=== PATIENT | female | born 1990 | race Caucasian/White ===

== ENCOUNTER → 2018-05-28 | Outpatient (REF) | payer OTHER ==
[~2018-05-28] MED LIST: IBUP-1114 PO; MAPA500T2 PO; PRENTAB9 PO
== END ==
LOC: M LAB REF 12:52
PROVIDERS: ATTEND Obstetrics & Gynecology
DX: Z34.83 Encounter for supervision of other normal pregnancy, third trimester (principal)

== ENCOUNTER 2018-06-30 01:45 | Inpatient (IN) | payer OTHER ==
[~2018-06-30] VITALS: Ht 172.7 cm; Wt 89.4 kg
[2018-06-30 02:06] VITALS: BP 139/79
[2018-06-30] MEDS ORDERED: LR 1,000 ML IV SCH (02:30)
[2018-06-30] MEDS ORDERED: LACTATED RINGER'S 1000 ML IV ONE (02:30)
[2018-06-30 02:54] LABS: HEMATOCRIT 40.3 % (36.0-47.0); HEMOGLOBIN 14.2 g/dl (12.0-15.5); MEAN CORPUSCULAR HEMOGLOBIN 30.7 pg (27.0-33.0); MEAN CORPUSCULAR HGB CONC 35.2 g/dl (32.0-36.5); PLATELET COUNT, AUTOMATED 149 10^3/uL (150-450); RED BLOOD COUNT 4.63 10^6/uL (4.00-5.40); WHITE BLOOD COUNT 14.8 10^3/uL (4.0-10.0)
[2018-06-30] MEDS ORDERED: OXYTOCIN 30 UNITS IN 0.9% NaCl 500ML IV BAG (J2590) As Ordered ONE (03:34)
[2018-06-30] MEDS ORDERED: OXYTOCIN DRIP 30 UNITS in APPROPRIATE DILUENT 1 EA IV SCH (03:51)
[2018-06-30] MEDS ORDERED: MEASLES,MUMPS,RUBELLA VACCINE INJ (MMR-II) (90707) SC SCH (04:00)
[2018-06-30] MEDS ORDERED: DOCUSATE SODIUM 100 MG CAP PO PRN (04:00)
[2018-06-30] MEDS ORDERED: ACETAMINOPHEN 500 MG TAB PO PRN (04:00)
[2018-06-30] MEDS ORDERED: IBUPROFEN 800 MG TAB PO PRN (04:00)
[2018-06-30] MEDS ORDERED: RHOGAM 300 MCG (1500 IU) INJ (J2790) IM SCH (04:00)
[2018-06-30] MEDS ORDERED: METHYLERGONOVINE MALEATE 0.2 MG TAB PO PRN (04:00)
[2018-06-30] MEDS ORDERED: DIBUCAINE 1% OINTMENT 30GM TOP PRN (04:00)
[2018-06-30 04:02] LABS: CORD GAS ABE A -2.9; CORD GAS ABE V -3.2; CORD GAS HCO3 A 22.6 MEQ/L; CORD GAS HCO3 V 20.7 MEQ/L; CORD GAS O2 SAT A 40.4 %; CORD GAS O2 SAT V 63.9 %; CORD GAS PCO2 A 41.7 mmHg; CORD GAS PCO2 V 34.5 mmHg; CORD GAS PH A 7.351 UNITS; CORD GAS PH V 7.397 UNITS; CORD GAS PO2 A 18.7 mmHg; CORD GAS PO2 V 25.2 mmHg; CORD GAS SBC A 20.7 MEQ/L; CORD GAS TCO2 A 23.8 MEQ/L; CORD GAS TCO2 V 21.8 MEQ/L
--- NOTE | 2018-06-30 08:12 | DN ---
DATE OF DELIVERY: 06/30/2018 Charlette is a 28-year-old female 2, para 1-0-0-1, who was admitted at 40-6/7 weeks gestation in active labor. She had spontaneous rupture of membranes with clear fluid, became fully dilated and pushed and delivered a live male infant in right occiput anterior position over an intact perineum. 9 and 9, birthweight 7 pounds 7 ounces. Placenta delivered spontaneously intact. Three-vessel cord. Perineum, vagina and cervix inspected. No laceration noted. Estimated blood loss 300 mL. Both mother and baby in stable condition.
--- NOTE | 2018-06-30 08:13 | HPE ---
DATE OF ADMISSION: 06/30/2018 Charlette is a 28-year-old female, 2, para 1-0-0-1, with an expected date of confinement (EDC) of 06/24/2018, estimated gestational age (EGA) 40 and 6/7 weeks gestation who presented to labor and delivery with complaints of contractions every 4-5 minutes. Upon evaluation, she was found to be in active labor. At this point, a decision was made for admission. Her record was reviewed. She initiated care at approximately 8 weeks. The rest of her course was essentially unremarkable. LABS: Blood type is O+. Rubella immune. Hepatitis negative. HIV negative. GC and chlamydia negative. 1-hour sugar testing was within normal limits. Her GBS is negative. PAST MEDICAL HISTORY: Denies. PAST SURGICAL HISTORY: Denies. SOCIAL HISTORY; She is . Denies any alcohol, drugs or cigarette smoking. REVIEW OF SYSTEMS: Unremarkable. MEDICATIONS: vitamin. ALLERGIES: No known drug allergies. PHYSICAL EXAMINATION: On admission, normal-appearing female in no acute distress. Abdomen: Soft, nontender, nondistended. Extremities: No clubbing, cyanosis or edema. Vaginal Exam: 5-6 cm dilated, 100% effaced, fetus at 0 station. Tracing reviewed. Category one tracing with contractions every 3-4 minutes. ASSESSMENT: 1. Intrauterine at 40-6/7 weeks gestation being admitted in active labor. 2. GBS negative. PLAN: Admit to labor and delivery. Routine labs sent. Continue to monitor. Anticipate delivery.
[2018-06-30] MEDS: PRENATAL VITAMINS CHEWABLE TABLET PO SCH (09:00)
[2018-06-30 09:40] VITALS: BP 139/72
[2018-06-30 18:00] VITALS: BP 107/62
[2018-07-01 06:30] VITALS: BP 114/73
[2018-07-01] MEDS: PRENATAL VITAMINS CHEWABLE TABLET PO SCH (09:14)
[2018-07-01] MEDS ORDERED: MAPA500T2 PO (13:16)
[2018-07-01] MEDS ORDERED: IBUP-1114 PO (13:17)
== END 2018-07-01 14:00 | disposition home or self-care (01) | DRG 807 ==
LOC: M LDO 01:45 → M LDI 02:26 → M OBS 09:39
PROVIDERS: ADMIT Obstetrics & Gynecology; ATTEND Obstetrics & Gynecology
PROC: 10E0XZZ Delivery of Products of Conception, External Approach (ICD-10-PCS; principal; 2018-06-30)
DX: O48.0 Post-term pregnancy (principal); Z37.0 Single live birth; Z3A.40 40 weeks gestation of pregnancy

== ENCOUNTER → 2020-03-20 | Outpatient (CLI) | payer OTHER ==
[~2020-03-20] MED LIST changes: +METH0.2T53 PO
--- NOTE | 2020-03-20 17:08 | REP ---
INDICATION: DATING/VIABILITY COMPARISON: None. TECHNIQUE: Transabdominal 1st trimester obstetrical ultrasound with color Doppler evaluation. FINDINGS: Single live early intrauterine is appreciated. Gestational sac with yolk sac and pole identified. Kaleva-rump length of 12 mm corresponds to 7 weeks 2 days gestational age with estimated date of delivery 11/04/2020. heart rate equals 142 beats per minute. No gross abnormalities are identified. IMPRESSION: Single live early intrauterine at 7 weeks 2 days gestational age. Complete anatomical assessment should be performed and 19-20 weeks. <Electronically signed by Sammy Khalil > 03/20/20 0050
== END ==
LOC: M WHC 15:48
PROVIDERS: ATTEND Obstetrics & Gynecology
DX: O36.80X0 Pregnancy with inconclusive fetal viability, not applicable or unspecified (principal)

== ENCOUNTER 2020-04-24 11:18 | Emergency (ER) | payer OTHER ==
[~2020-04-24] VITALS: Ht 172.7 cm; Wt 75.5 kg
[2020-04-24 12:35] LABS: BASO % 0.5 % (0.0-1.0); EOS % 0.3 % (0.0-3.0); HEMATOCRIT 40.9 % (36.0-47.0); LYMPH # 2.4 10^3/uL (1.5-5.0); LYMPH % 27.5 % (24.0-44.0); MEAN CORPUSCULAR HEMOGLOBIN 29.9 pg (27.0-33.0); MEAN CORPUSCULAR HGB CONC 34.2 g/dl (32.0-36.5); MEAN CORPUSCULAR VOLUME 87.2 fl (80.0-96.0); MONO # 0.4 10^3/uL (0.0-0.8); NEUTROPHILS % 67.4 % (36.0-66.0); PLATELET COUNT, AUTOMATED 213 10^3/uL (150-450); RED BLOOD COUNT 4.69 10^6/uL (4.00-5.40); WHITE BLOOD COUNT 8.9 10^3/uL (4.0-10.0)
[2020-04-24 13:16] LABS: ALBUMIN 3.7 GM/DL (3.2-5.2); ALT/SGPT 17 U/L (12-78); BILIRUBIN,DIRECT 0.1 MG/DL (0.0-0.2); BILIRUBIN,TOTAL 0.6 MG/DL (0.2-1.0); BLOOD UREA NITROGEN 8 MG/DL (7-18); CALCIUM LEVEL 9.2 MG/DL (8.5-10.1); CARBON DIOXIDE LEVEL 24 MEQ/L (21-32); CHLORIDE LEVEL 106 MEQ/L (98-107); CREATININE FOR GFR 0.66 MG/DL (0.55-1.30); GLOMERULAR FILTRATION RATE > 60.0 (>60); GLUCOSE, FASTING 93 MG/DL (70-100); HCG, SERUM QUANTITATIVE 1874 MIU/ML; POTASSIUM SERUM 3.5 MEQ/L (3.5-5.1); SODIUM LEVEL 138 MEQ/L (136-145); TOTAL PROTEIN 7.4 GM/DL (6.4-8.2)
[2020-04-24 13:38] VITALS: BP 155/93
--- NOTE | 2020-04-24 13:54 | REP ---
INDICATION: vaginal bleeding 12 weeks COMPARISON: None. TECHNIQUE: Transabdominal obstetrical ultrasound with color Doppler evaluation. FINDINGS: Gestational sac with yolk sac and pole noted. No cardiac activity is or pole motion identified and findings are compatible with demise at 9 weeks 0 days gestational age. IMPRESSION: Evidence for demise at 9 weeks 0 days gestational age. <Electronically signed by Sammy Khalil > 04/24/20 [id number]
[2020-04-25] MEDS ORDERED: PERC5TAB12 PO (12:01)
== END 2020-04-24 14:36 | disposition home or self-care (01) ==
LOC: M ED 11:18
DX: O02.1 Missed abortion (principal); Z79.899 Other long term (current) drug therapy; Z20.828 Contact with and (suspected) exposure to other viral communicable diseases
CPT/HCPCS: 36415; 76801; 80048; 80076; 81001; 84702; 85025; 86850; 86900; 86901; 99284; U0002

== ENCOUNTER 2020-04-25 08:48 | Day surgery (SDC) | payer OTHER ==
[~2020-04-25] VITALS: Ht 172.7 cm; Wt 74.3 kg
[2020-04-25] MEDS ORDERED: propofoL 200 MG/20 ML VIAL As Ordered ONE (11:01)
[2020-04-25] MEDS ORDERED: LIDOCAINE 2% 100MG/5ML SDV (FOR ANES.) As Ordered ONE (11:01)
[2020-04-25] MEDS ORDERED: MIDAZOLAM INJ 2MG/2ML VIAL (J2250 PER 1MG) As Ordered ONE (11:01)
[2020-04-25] MEDS ORDERED: fentaNYL 100 MCG/2 ML INJECTION (J3010) As Ordered ONE (11:01)
[2020-04-25] MEDS ORDERED: ACETAMINOPHEN 1000MG 100ML IV BTL (OFIRMEV) (J0131 PER 10MG) As Ordered ONE (11:34)
[2020-04-25] MEDS ORDERED: dexameTHASONE 4 MG/ML 1ML VIAL (J1100 PER 1MG) As Ordered ONE (11:34)
[2020-04-25] MEDS ORDERED: ONDANSETRON 4MG/2ML VIAL As Ordered ONE (11:34)
[2020-04-25] MEDS ORDERED: KETOROLAC 60MG 2ML VIAL As Ordered ONE (11:42)
[2020-04-25] MEDS ORDERED: METHYLERGONOVINE MALEATE 0.2 MG/ML VIAL (J2210) As Ordered ONE (11:44)
[2020-04-25] MEDS ORDERED: PERC5TAB12 PO (12:01)
[2020-04-25] MEDS ORDERED: LR 1,000 ML IV SCH (12:30)
[2020-04-25] MEDS ORDERED: HYDROMORPHONE HCL 0.5 MG/ 0.5 ML SYRINGE (J1170 PER 1) IV PRN (12:30)
[2020-04-25] MEDS ORDERED: fentaNYL 100 MCG/2 ML INJECTION (J3010) IV PRN (12:30)
[2020-04-25] MEDS ORDERED: PERCOCET 5MG/325MG TAB PO PRN (12:30)
[2020-04-25] MEDS ORDERED: ONDANSETRON 4MG/2ML VIAL IV PRN (12:30)
[2020-04-25] MEDS ORDERED: oxyCODONE 5MG TAB PO PRN (12:30)
[2020-04-25 13:10] VITALS: BP 112/69
--- NOTE | 2020-04-25 14:52 | RO ---
DATE OF OPERATION: 04/25/2020 Karolina is a 29-year-old female who was found to have an intrauterine demise (IUFD) at approximately 9 weeks. After extensive counseling, a decision was made for suction dilatation and curettage. PREOPERATIVE DIAGNOSIS: Missed at 9+ weeks. POSTOPERATIVE DIAGNOSIS: Missed at 9+ weeks. PROCEDURE: Suction dilatation and curettage. ANESTHESIA: General. SURGEON: Dr. Pepper COMPLICATIONS: None. ESTIMATED BLOOD LOSS: Less than 20 mL. SPECIMENS SENT TO THE LABORATORY: Numerous products of conception. PROCEDURE DESCRIPTION: After obtaining informed consent, patient was taken to the operating room, where general anesthetic was found to be adequate. She was then draped and prepped in the usual sterile fashion in the dorsal lithotomy position. At this point, a straight catheterization of the bladder was performed for approximately 110 mL of clear urine. We then placed a weighed speculum in the posterior fornix of the vagina. Using a Robb retractor, the anterior lip of the cervix was then grasped with a single-tooth tenaculum. The uterus was then sounded, the cervix serially dilated, and an 8 mm suction curette was inserted. The cavity was cleared of all clot and debris. Then a sharp curettage of the endometrial lining was performed until a gritty texture was felt. At this point, good hemostasis was noted. Then 0.2 mg of Methergine was given. Patient tolerated the procedure well. She was then transferred to the recovery room in stable condition. TAL
[2020-04-25] MEDS ORDERED: IBUPROFEN 800 MG TAB PO SCH (18:00)
== END 2020-04-25 13:15 | disposition home or self-care (01) ==
LOC: M SDC 08:48
PROVIDERS: ATTEND Obstetrics & Gynecology
DX: O02.1 Missed abortion (principal)
CPT/HCPCS: 59820; 88305; J0131; J1100; J2210; J2250; J2405; J3010

== ENCOUNTER → 2020-07-04 | Outpatient (REF) | payer OTHER ==
[~2020-07-04] MED LIST changes: +PERC5TAB12 PO
== END ==
LOC: M LAB REF 17:11
PROVIDERS: ATTEND Obstetrics & Gynecology
DX: O20.0 Threatened abortion (principal)

== ENCOUNTER → 2021-01-24 | Outpatient (REF) | payer OTHER ==
[2021-01-24 18:18] LABS: HEMATOCRIT 37.2 % (36.0-47.0); MEAN CORPUSCULAR HEMOGLOBIN 30.5 pg (27.0-33.0); MEAN CORPUSCULAR HGB CONC 34.9 g/dl (32.0-36.5); MEAN CORPUSCULAR VOLUME 87.3 fl (80.0-96.0); PLATELET COUNT, AUTOMATED 236 10^3/uL (150-450); RED BLOOD COUNT 4.26 10^6/uL (4.00-5.40); WHITE BLOOD COUNT 9.8 10^3/uL (4.0-10.0)
[2021-01-24 19:38] LABS: HCG, SERUM QUANTITATIVE 111243 MIU/ML; HEPATITIS B SURFACE ANTIGEN NEGATIVE (NEGATIVE); HEPATITIS C VIRUS ABY INDEX 0.1 INDEX (<0.8); HIV 1&2 SCREEN CENTAUR NEGATIVE (NEGATIVE)
== END ==
LOC: M LAB REF 17:07
PROVIDERS: ATTEND Obstetrics & Gynecology
DX: Z32.01 Encounter for pregnancy test, result positive (principal); O36.80X0 Pregnancy with inconclusive fetal viability, not applicable or unspecified; Z3A.00 Weeks of gestation of pregnancy not specified

== ENCOUNTER → 2021-07-24 | Outpatient (REF) | payer OTHER | LOC: M LAB REF 16:26 | PROVIDERS: ATTEND Obstetrics & Gynecology | DX: Z34.83 Encounter for supervision of other normal pregnancy, third trimester (principal); Z3A.00 Weeks of gestation of pregnancy not specified ==

== ENCOUNTER → 2024-05-26 | Outpatient (REF) | payer OTHER ==
[~2024-05-26] MED LIST changes: +ACET-683 PO; +COLA100C5 PO; +IBUP-1022 PO
[2024-05-26 12:39] LABS: HEMOGLOBIN 13.5 g/dl (12.0-15.5); MEAN CORPUSCULAR HEMOGLOBIN 30.1 pg (27.0-33.0); MEAN CORPUSCULAR HGB CONC 34.6 g/dl (32.0-36.5); MEAN CORPUSCULAR VOLUME 87.1 fl (80.0-96.0); PLATELET COUNT, AUTOMATED 226 10^3/uL (150-450); RED BLOOD COUNT 4.48 10^6/uL (4.00-5.40); WHITE BLOOD COUNT 7.3 10^3/uL (4.0-10.0)
[2024-05-26 13:33] LABS: HIV 1&2 SCREEN NEGATIVE (NEGATIVE)
[2024-05-26 13:41] LABS: HEPATITIS C VIRUS ABY INDEX 0.04 INDEX (<0.8)
[2024-05-26 13:43] LABS: HCG, SERUM QUANTITATIVE 18865.8 MIU/ML (<4.2)
== END ==
LOC: M LAB REF 12:12
PROVIDERS: ATTEND Obstetrics & Gynecology
DX: O36.80X0 Pregnancy with inconclusive fetal viability, not applicable or unspecified (principal)

== ENCOUNTER 2024-06-04 22:32 | Emergency (ER) | payer OTHER ==
[~2024-06-04] VITALS: Ht 172.7 cm; Wt 80.7 kg
[2024-06-05] LABS: BASO % 0.4 % (0.0-1.0); EOS # 0.2 10^3/uL (0.0-0.5); EOS % 2.5 % (0.0-3.0); HEMATOCRIT 37.5 % (36.0-47.0); LYMPH % 37.5 % (24.0-44.0); MEAN CORPUSCULAR HGB CONC 34.7 g/dl (32.0-36.5); MEAN CORPUSCULAR VOLUME 86.6 fl (80.0-96.0); MONO # 0.6 10^3/uL (0.0-0.8); NEUTROPHILS # 4.1 10^3/uL (1.5-8.5); NEUTROPHILS % 51.3 % (36.0-66.0); PLATELET COUNT, AUTOMATED 222 10^3/uL (150-450); RED BLOOD COUNT 4.33 10^6/uL (4.00-5.40)
[2024-06-05 00:02] LABS: BLOOD UREA NITROGEN 9 MG/DL (9-23); CALCIUM LEVEL 9.5 MG/DL (8.5-10.1); CARBON DIOXIDE LEVEL 27 MMOL/L (20-31); CHLORIDE LEVEL 107 MMOL/L (98-107); CREATININE FOR GFR 0.62 MG/DL (0.55-1.30); GLOMERULAR FILTRATION RATE > 60.0 (>60); GLUCOSE, FASTING 100 MG/DL (60-100); POTASSIUM SERUM 3.7 MMOL/L (3.5-5.1); SODIUM LEVEL 141 MMOL/L (136-145)
[2024-06-05 00:17] LABS: HCG, SERUM QUANTITATIVE 56387.7 MIU/ML (<4.2)
[2024-06-05 00:38] VITALS: BP 116/75; TEMP 97.6; O2SAT 97
== END 2024-06-05 00:41 | disposition home or self-care (01) ==
LOC: M ED 22:32
DX: O26.851 Spotting complicating pregnancy, first trimester (principal); Z3A.01 Less than 8 weeks gestation of pregnancy; Z79.1 Long term (current) use of non-steroidal anti-inflammatories (NSAID); Z79.899 Other long term (current) drug therapy

== ENCOUNTER → 2024-09-01 | Outpatient (CLI) | payer OTHER | LOC: M WHC 15:15 | PROVIDERS: ATTEND Obstetrics & Gynecology | DX: Z34.82 Encounter for supervision of other normal pregnancy, second trimester (principal) ==

== ENCOUNTER → 2024-09-29 | Outpatient (CLI) | payer OTHER | LOC: M WHC 15:48 | PROVIDERS: ATTEND Obstetrics & Gynecology | DX: O32.8XX0 Maternal care for other malpresentation of fetus, not applicable or unspecified (principal); Z3A.24 24 weeks gestation of pregnancy; O28.3 Abnormal ultrasonic finding on antenatal screening of mother ==

== ENCOUNTER → 2024-12-20 | Outpatient (REF) | payer OTHER | LOC: M LAB REF 16:48 | PROVIDERS: ATTEND Obstetrics & Gynecology | DX: Z34.83 Encounter for supervision of other normal pregnancy, third trimester (principal) ==

== ENCOUNTER → 2025-01-03 | Outpatient (CLI) | payer OTHER | LOC: M RAD 14:12 | PROVIDERS: ATTEND Obstetrics & Gynecology | DX: Z34.83 Encounter for supervision of other normal pregnancy, third trimester (principal); Z3A.38 38 weeks gestation of pregnancy ==

== ENCOUNTER 2025-01-21 12:48 | Inpatient (IN) | payer OTHER ==
[~2025-01-21] VITALS: Ht 172.7 cm; Wt 88.5 kg
[2025-01-21] VITALS (16 sets, daily range): BP systolic 101–132; BP diastolic 60–90; TEMP 97.2; O2SAT 97–100
[~2025-01-21 12:48] MED LIST changes: -IBUP-1022 PO; +IBUP600T42 PO
[2025-01-21] MEDS ORDERED: HOME MED LIST COMPLETE! XX SCH (13:15)
[2025-01-21] MEDS ORDERED: CARBOPROST TROMETHAMINE 250 MCG/ML AMP IM PRN (13:55)
[2025-01-21] MEDS ORDERED: METHYLERGONOVINE MALEATE 0.2 MG/ML 1 ML VIAL IM PRN ×2 (13:55→20:00)
[2025-01-21] MEDS ORDERED: LIDOCAINE 1% MDV 20 ML VIAL INFIL PRN (13:55)
[2025-01-21] MEDS ORDERED: TRANEXAMIC ACID INJection 1,000 MG in NS 100 ML IV PRN (13:55)
[2025-01-21] MEDS ORDERED: OXYTOCIN DRIP 30 UNITS in IV 1 EA IV PRN (13:55)
[2025-01-21 14:12] LABS: PLATELET COUNT, AUTOMATED 139 10^3/uL (150-450)
[2025-01-21] MEDS: LR 1,000 ML IV SCH ×2 (14:25→20:22)
[2025-01-21] MEDS: OXYTOCIN DRIP 30 UNITS in IV 1 EA IV SCH ×2 (14:25→20:22)
[2025-01-21 15:14] LABS: HIV 1&2 SCREEN NEGATIVE (NEGATIVE)
[2025-01-21 15:22] LABS: HEPATITIS C VIRUS ABY INDEX < 0.02 INDEX (<0.8)
[2025-01-21] MEDS: AZITHROMYCIN INJ 500 MG, VIAL MATE ADAPTER 1 EACH in NS 250 ML IV ONE (18:37)
[2025-01-21] MEDS: ceFAZolin SODIUM 2 GM in DEXTROSE 5% (D5W) ADV/MINI-BAG 50 ML IV ONE (18:37)
[2025-01-21] MEDS: BICITRA 30 ML SOLN UDC PO ONE (18:39)
[2025-01-21] MEDS ORDERED: MORPHINE PRES-FREE INJ 10 MG/10 ML VIAL As Ordered ONE (19:20)
[2025-01-21] MEDS ORDERED: KETOROLAC 30 MG/ML 1 ML VIAL As Ordered ONE (19:20)
[2025-01-21] MEDS ORDERED: ONDANSETRON 4MG 2ML VIAL As Ordered ONE (19:20)
[2025-01-21 19:30] LABS: CORD GAS ABE A -3.2; CORD GAS ABE V -1.8; CORD GAS HCO3 A 22.5 MMOL/L; CORD GAS HCO3 V 23.7 MMOL/L; CORD GAS O2 SAT A 40.9 %; CORD GAS O2 SAT V 37.8 %; CORD GAS PCO2 A 42.6 mmHg; CORD GAS PCO2 V 43.0 mmHg; CORD GAS PH A 7.341 UNITS; CORD GAS PH V 7.359 UNITS; CORD GAS PO2 A 17.9 mmHg; CORD GAS PO2 V 17.7 mmHg; CORD GAS SBC A 20.4 MMOL/L; CORD GAS SBC V 21.4 MMOL/L; CORD GAS TCO2 A 23.8 MMOL/L; CORD GAS TCO2 V 25.0 MMOL/L
[2025-01-21] MEDS ORDERED: PHENYLephrine 500MCG 5ML (100MCG/ML) SYRINGE As Ordered ONE (19:30)
[2025-01-21] MEDS ORDERED: ONDANSETRON 4MG 2ML VIAL IV PRN ×2 (20:00→20:10)
[2025-01-21] MEDS ORDERED: ANUSOL HC CREAM 30 GM TOP PRN (20:00)
[2025-01-21] MEDS ORDERED: SIMETHICONE 80MG CHEW TAB PO PRN (20:00)
[2025-01-21] MEDS ORDERED: PERCOCET 5MG/325MG TAB PO PRN ×2 (20:00)
[2025-01-21] MEDS ORDERED: CALCIUM CARBONATE 500 MG CHEW U/D PO PRN (20:00)
[2025-01-21] MEDS ORDERED: RHOGAM 300MCG (1500IU) INJ IM SCH (20:00)
[2025-01-21] MEDS ORDERED: MORPHINE 4 MG/ML 1 ML VIAL IV PRN (20:00)
[2025-01-21] MEDS ORDERED: PERCOCET PO (20:10)
[2025-01-21] MEDS ORDERED: HYDROMORPHONE HCL 0.5 MG/0.5 ML SYRINGE IV PRN (20:10)
[2025-01-21] MEDS ORDERED: NALOXONE INJ 0.4 MG/1 ML VIAL IV PRN ×2 (20:10)
[2025-01-21] MEDS ORDERED: IBUP80TA PO (20:10)
[2025-01-21] MEDS ORDERED: COLA100C5 PO (20:10)
[2025-01-21] MEDS ORDERED: **NOTE PATIENT COMMENT** MISC XX SCH (20:10)
[2025-01-21] MEDS ORDERED: diphenhydrAMINE 50 MG/ML VIAL IV PRN (20:10)
[2025-01-21] MEDS ORDERED: OXYTOCIN 30UNITS IN 0.9% NaCl 500ML IV BAG As Ordered ONE (20:21)
[2025-01-21] MEDS: SLF 3 ML SYR IV SCH (21:41)
[2025-01-21] MEDS: LACTATED RINGER'S 1000 ML IV STA (21:41)
[2025-01-22] VITALS (7 sets, daily range): BP systolic 92–121; BP diastolic 51–64; O2SAT 96–99
[2025-01-22] MEDS: DOCUSATE SODIUM 100 MG CAPSULE PO SCH (02:50)
[2025-01-22] MEDS: KETOROLAC 30 MG/ML 1 ML VIAL IV SCH (02:50)
[2025-01-22 07:27] LABS: PLATELET COUNT, AUTOMATED 138 10^3/uL (150-450)
[2025-01-22] MEDS: PRENATAL VITAMINS CHEWABLE TABLET PO SCH (11:52)
[2025-01-22] MEDS: FERROUS SULFATE 325 MG TAB PO SCH (11:52)
[2025-01-22] MEDS: IBUPROFEN 800 MG TAB PO SCH (21:54)
[2025-01-23 02:00] VITALS: BP 105/60; O2SAT 95
[2025-01-23 06:00] VITALS: BP 111/59; O2SAT 96
[2025-01-23] MEDS ORDERED: MEASLES,MUMPS,RUBELLA VACCINE INJ (MMR-II) SC.IMMUN ONE (09:00)
[2025-01-23] MEDS: ACETAMINOPHEN 500 MG TAB PO PRN (09:15)
[2025-01-23 10:06] VITALS: BP 113/72; O2SAT 97
== END 2025-01-23 12:43 | disposition home or self-care (01) | DRG 787 ==
LOC: M LDO 12:48 → M LDI 14:16 → M OBS 21:10
PROVIDERS: ADMIT Obstetrics & Gynecology; ATTEND Obstetrics & Gynecology
PROC: 10D00Z1 Extraction of Products of Conception, Low, Open Approach (ICD-10-PCS; principal; 2025-01-21 19:06)
DX: O32.0XX0 Maternal care for unstable lie, not applicable or unspecified (principal); O41.03X0 Oligohydramnios, third trimester, not applicable or unspecified; Z37.0 Single live birth; Z3A.41 41 weeks gestation of pregnancy; O24.429 Gestational diabetes mellitus in childbirth, unspecified control; O48.0 Post-term pregnancy; O69.0XX0 Labor and delivery complicated by prolapse of cord, not applicable or unspecified; O32.3XX0 Maternal care for face, brow and chin presentation, not applicable or unspecified